=== PATIENT | female | born 1955 | race Caucasian/White ===

== ENCOUNTER → 2020-12-24 | Outpatient (CLI) | payer BC ==
[~2020-12-24] MED LIST: BACTROBAN OINT22 GM EXT; CLEOCIN HCL300 MG PO; IBUPROFEN600 MG PO; PRINIVIL10 MG PO
== END ==
LOC: EMI 12-20 10:00
DX: R51.9 Headache, unspecified (principal); G45.9 Transient cerebral ischemic attack, unspecified; R29.818 Other symptoms and signs involving the nervous system; H53.9 Unspecified visual disturbance
CPT/HCPCS: 70551

== ENCOUNTER → 2021-01-04 | Outpatient (CLI) | payer MEDICARE | LOC: MAMO 10:10 → EXRD 11:30 | DX: Z12.31 Encounter for screening mammogram for malignant neoplasm of breast (principal); Z78.0 Asymptomatic menopausal state | CPT/HCPCS: 77063; 77067; 77080 ==